=== PATIENT | male | born 1990 | race Caucasian/White ===

== ENCOUNTER 2020-08-06 20:19 | Emergency (ER) | payer OTHER ==
[2020-08-06] MEDS ORDERED: IBUPROFEN800 MG PO (21:17)
== END 2020-08-06 21:48 | disposition home or self-care (01) ==
LOC: ER1 20:19
DX: S33.5XXA Sprain of ligaments of lumbar spine, initial encounter (principal); Z88.2 Allergy status to sulfonamides; V43.52XA Car driver injured in collision with other type car in traffic accident, initial encounter
CPT/HCPCS: 72072; 72100; 99283